=== PATIENT | female | born 1980 | race Caucasian/White ===

== ENCOUNTER 2016-12-31 07:54 | Day surgery (SDC) | payer OTHER ==
[~2016-12-31 07:54] MED LIST: Povidone-Iodine 10% Soln 118.25 ML Bottle ONE; Thrombin (Bovine) 5,000 Unit Kit ONE
[2016-12-31] MEDS ORDERED: Scopolamine 1.5 MG Transdermal Patch TRDERM SCH (08:00)
[2016-12-31] MEDS: Lactated Ringers 1,000 ML IV SCH ×2 (08:21→16:44)
[2016-12-31] MEDS ORDERED: Rocuronium 50 MG/5 ML Vial ONE (08:30)
[2016-12-31] MEDS ORDERED: Dexamethasone 4 MG/ML SDV ONE (08:30)
[2016-12-31] MEDS ORDERED: Propofol 200 MG/20 ML SDV ONE ×2 (08:30→10:19)
[2016-12-31] MEDS ORDERED: fentaNYL 250 MCG/5 ML SDV ONE ×2 (08:30→11:02)
[2016-12-31] MEDS ORDERED: Ondansetron 4 MG/2 ML SDV ONE (08:30)
[2016-12-31] MEDS ORDERED: Succinylcholine/Normal Saline 200 MG/10 ML Syringe ONE (08:30)
[2016-12-31] MEDS ORDERED: Ketamine 500 MG/5 ML MDV IV SCH (10:00)
[2016-12-31] MEDS ORDERED: ceFAZolin 2 GM in Sodium Chloride 0.9% 50 ML IV ONE (10:00)
[2016-12-31] MEDS ORDERED: Ropivacaine 49.25 ML, Ketorolac 30 MG, EPINEPHrine 0.5 MG, cloNIDine 80 MCG, Sodium Chl... INJECT ONE ×5 (10:00)
[2016-12-31] MEDS: Tranexamic Acid 1,000 MG in Sodium Chloride 0.9% 50 ML IV SCH ×2 (11:15→12:42)
[2016-12-31] MEDS ORDERED: Lactated Ringers 1,000 ML ONE (12:06)
[2016-12-31] MEDS ORDERED: Sennosides 8.6 MG Tab PO PRN (12:33)
[2016-12-31] MEDS ORDERED: Magnesium Hydroxide 400 MG/5 ML Susp 30 ML Cup PO PRN (12:33)
[2016-12-31] MEDS ORDERED: Aluminum Hydroxide/Magnesium Hydroxide/Simethicone Susp 30 ML Cup PO PRN (12:33)
[2016-12-31] MEDS ORDERED: Ondansetron 4 MG/2 ML SDV IVPUSH PRN (12:33)
[2016-12-31] MEDS ORDERED: Sodium Chloride 0.9% 10 ML Syringe FLUSH PRN (12:33)
[2016-12-31] MEDS ORDERED: Zolpidem 5 MG Tab PO PRN (12:33)
[2016-12-31] MEDS ORDERED: Naloxone 0.4 MG/ML SDV IVPUSH PRN (12:33)
[2016-12-31] MEDS ORDERED: hydrOXYzine HCl 50 MG/ML SDV IM ONE (12:41)
[2016-12-31] MEDS ORDERED: fentaNYL 100 MCG/2 ML SDV IVPUSH ONE (12:57)
[2016-12-31] MEDS: HYDROmorphone 1 MG/ML Syringe IVPUSH PRN ×3 (13:51→22:18)
[2016-12-31] MEDS: VERIFY SCOPOLAMINE PATCH TOP SCH (15:22)
[2016-12-31] MEDS: Acetaminophen/oxyCODONE 325-5 MG Tab PO PRN ×2 (16:54→21:12)
[2016-12-31] MEDS: ceFAZolin 2 GM in Sodium Chloride 0.9% 50 ML IV SCH (18:27)
[2017-01-01] MEDS: Acetaminophen/oxyCODONE 325-5 MG Tab PO PRN ×3 (01:23→12:02)
[2017-01-01] MEDS: ceFAZolin 2 GM in Sodium Chloride 0.9% 50 ML IV SCH ×3 (01:23→11:21)
[2017-01-01] MEDS: HYDROmorphone 1 MG/ML Syringe IVPUSH PRN (03:37)
[2017-01-01] MEDS: Tranexamic Acid 1,000 MG in Sodium Chloride 0.9% 50 ML IV SCH (07:17)
[2017-01-01] MEDS: VERIFY SCOPOLAMINE PATCH TOP SCH (09:41)
[2017-01-01] MEDS ORDERED: traMADol 50 MG Tab PO PRN (10:10)
--- NOTE | 2017-01-01 10:19 | OR ---
DATE OF PROCEDURE: 12/31/2016 PREOPERATIVE DIAGNOSIS: L3-L4 stenosis. POSTOPERATIVE DIAGNOSIS: L3-L4 stenosis. PROCEDURES: 1. L3-L4 laminectomy. 2. Extended time secondary to morbid obesity. 3. Use of operating microscope. PUMPING PLANT OPERATOR: Salome David NP. FLUID: Lactated Ringer solution. ESTIMATED BLOOD LOSS: 25 mL. COMPLICATIONS: None. SPECIMEN: None. DISCHARGE DISPOSITION: Stable to PACU. HISTORY AND INDICATIONS FOR THE PROCEDURE: The patient was seen in the clinic. She was referred from [place] for Pain Management, after having failed nonoperative treatment. Preoperative imaging confirmed the above-mentioned diagnosis. Risks and benefits of the procedure were explained to the patient. Informed consent was obtained. DETAILS OF PROCEDURE: The patient was seen preoperatively by myself and the Anesthesia staff in the preoperative holding area, where the operative site was marked. She was brought to the operative suite by the Anesthesia staff, where general anesthesia was administered. She was placed into a prone position on a Tobi table. All extremities were found to be well padded. The bed was flexed. We did confirm that we could get adequate imaging prior to starting the procedure. We then prepped and draped the patient in sterile manner. We draped the microscope and fluoroscopy unit sterilely. The patient was then prepped and draped in a sterile manner. Time-out was called identifying the correct patient, the correct procedure, the correct site, and antibiotics had been with appropriate period of time. Lateral fluoroscopy was used to identify the L3-L4 interspace. Incision was made over the L3 and L4 spinous processes and carried down to the deep fascia. Bleeding was controlled with a bipolar electrocautery unit as well as an Aquamantys 5.0. Cerebellars were used for retraction. We then used a Brewer over the spinous processes of L3 and L4, and then the lamina of L3, after the level of facets and then the superior portion of lamina of L4 out to the facet. We had a good placement on fluoroscopy. We then used rongeur to remove the inferior portion of the L3 spinous process and then used a 3-0 angled curette to undermine the lamina bilaterally at L3 on L4. I used a #5 Kerrison and removed part of the lamina of L3. I then used a long ball to free up the ligamentum flavum. There was quite a bit of epidural lipomatosis as well. I was able to remove the ligamentum flavum and then very carefully protecting the dura, opened up the lateral recesses using a #5 Kerrison opening it on the right side. I then used a long ball for retraction and then used bipolar cautery as well as Aquamantys 5.0 unit to clear the epidural space. I then used sharp #15 blade to go through the anulus and then removed a small amount of disk material using straight and upbiting pituitary as well as curette and Kerrison. Feeling that all the disk remaining was stable, I then controlled bleeding in the disk space with Floseal. We then copiously irrigated with 2 L of Betadine infused irrigation and then placed remainder of the Floseal and tamped the excess Floseal with a damp Ray-Nena. We then filled the remainder with Gel-Foam powder and then closed our fascia with #2 Vicryl interlocking suture as well as 0 interlocking suture and 0 continuous suture followed by deep subcutaneous closure with 0 Vicryl interrupted followed by superficial subcutaneous closure with 2-0 Vicryl followed by Monocryl followed by an Aquacel dressing. The patient was then flipped back into a supine position on her hospital bed and taken to the PACU in stable condition. Raffy Leone DO /[id number]
[2017-01-01 12:06] VITALS: BP 104/80
--- NOTE | 2017-01-05 11:01 | PCM.DCSUM1 ---
Discharge Summary - Hospital Course Free Text/Narrative:: Sofie is a pleasant 36-year-old female who is status post postop day 1 of a lumbar fusion. She is doing very well. She states that she still continues to have slight pain but otherwise is doing well. She is using oral pain medications. She has continued to work with physical therapy. - Discharge Data Discharge Date: 01/01/17 Discharge Disposition: Home, Self-Care 01 Condition: Good - Discharge Diagnosis/Problem(s) (1) Status post lumbar laminectomy SNOMED Code(s): 65667800626209875, [id number], [id number] ICD Code: Z98.890 - OTHER SPECIFIED POSTPROCEDURAL STATES Status: Acute Problem Details: L 3 - L 4 - Patient Summary/Data Consults: Consultations 12/31/16 12:33 OT Evaluation and Treatment [CONS] Routine Please Evaluate and Treat. OT Reason for Consult: Strengthening This query below is only for informational purposes and is not editable. PT Evaluation and Treatment [CONS] Routine Please Evaluate and Treat. PT Reason for Consult: Strengthening This query below is only for informational purposes and is not editable. - Patient Instructions Diet: Heart Healthy Diet Activity: Apply Ice, As Tolerated Driving: Do Not Drive Showering/Bathing: May Shower Wound/Incision Care: Keep Operative Site/Wound Site Clean and Dry, Change Dressing Daily - Discharge Plan Prescriptions/Med Rec: Acetaminophen/oxyCODONE [Percocet 325-5 MG] 1 tab PO Q4H PRN #90 tablet PRN Reason: Pain Home Medications: Home Meds Acetaminophen 650 tab PO Q4H PRN 12/09/16 [History] Cyclobenzaprine [Flexeril] 10 tab PO TID PRN 12/09/16 [History] Hydrocodone/Acetaminophen [[place] 5-325] 2 tab PO Q6H PRN 12/09/16 [History] Spironolactone 50 mg PO BID 12/09/16 [History] metFORMIN [Glucophage XR] 500 mg PO DAILY 12/09/16 [History] Levonorgestrel [Mirena] 1 each IY ASDIRECTED 12/26/16 [History] Acetaminophen/oxyCODONE [Percocet 325-5 MG] 1 tab PO Q4H PRN #90 tablet [Rx] Patient Handouts: Acetaminophen; Oxycodone tablets, Laminectomy, Care After - Discharge Summary/Plan Comment DC Time >30 min.: Yes Discharge Summary/Plan Comment: patient is requesting to go home today. I do believe that if the patient's pain is under control that we may proceed with discharge. Will keep her off all IV pain medications. We will send her home on Percocet and Valium. We will see her back in 1 month. We also start physical therapy in 1 month. She is to follow up with us sooner if she has any other issues. - General Info Functional Status: Reports: pain controlled, tolerating diet, ambulating, urinating - Review of Systems General: Reports: No Symptoms Skin: Reports: no symptoms - Patient Data Vitals - Most Recent: Last Vital Signs Temp 36.5 C 01/01/17 12:04 Pulse 65 01/01/17 12:04 Resp 18 01/01/17 12:04 BP 104/80 01/01/17 12:04 Pulse Ox 100 01/01/17 12:04 Weight - Most Recent: 292 lb 0.001 oz Med Orders - Current: Current Medications Discontinued Medications Al Hydroxide/Mg Hydroxide (Mag-Al Plus) 30 ml PO Q4H PRN PRN Reason: Indigestion Ropivacaine 49.25 ml/Ketorolac Tromethamine 30 mg/Epinephrine HCl 0.5 mg/ Clonidine HCl 80 mcg/ Sodium Chloride 48.45 ml 0 ml INJECT ONETIME ONE Stop: 12/31/16 10:01 Last Admin: 12/31/16 11:50 Dose: 100 ml Dexamethasone (Dexamethasone) Confirm Administered Dose 4 mg .ROUTE .STK-MED ONE Stop: 12/31/16 08:31 Diazepam (Valium) 5 mg IVPUSH Q6H PRN PRN Reason: Spasms Fentanyl (Sublimaze) Confirm Administered Dose 500 mcg .ROUTE .STK-MED ONE Stop: 12/31/16 08:31 Fentanyl (Sublimaze) Confirm Administered Dose 250 mcg .ROUTE .STK-MED ONE Stop: 12/31/16 11:03 Fentanyl (Sublimaze) 100 mcg IVPUSH ONETIME ONE Stop: 12/31/16 12:58 Last Admin: 12/31/16 13:01 Dose: 100 mcg Hydromorphone HCl (Dilaudid) 1 mg IVPUSH Q2H PRN PRN Reason: Pain Last Admin: 01/01/17 03:37 Dose: 1 mg Hydroxyzine HCl (Vistaril) 100 mg IM ONETIME ONE Stop: 12/31/16 12:42 Last Admin: 12/31/16 12:45 Dose: 100 mg Lactated Ringer's (Ringers, Lactated) 1,000 mls @ 0 mls/hr IV ASDIRECTED [facility] PRN Reason: KVO Last Admin: 12/31/16 16:44 Dose: 25 mls/hr Cefazolin Sodium 2 gm/ Sodium (Chloride) 50 mls @ 100 mls/hr IV ONETIME ONE Stop: 12/31/16 10:29 Last Admin: 12/31/16 10:34 Dose: 100 mls/hr Tranexamic Acid 1,000 mg/ (Sodium Chloride) 60 mls @ 240 mls/hr IV Q3H [facility] Stop: 12/31/16 13:14 Last Admin: 01/01/17 07:17 Dose: Not Given Ketamine HCl 100 mg/ Sodium (Chloride) 100 mls @ 19.2 mls/hr IV ASDIRECTED [facility] PRN Reason: 5 MCG/KG/MIN Stop: 12/31/16 15:00 Lactated Ringer's (Ringers, Lactated) Confirm Administered Dose 1,000 mls @ as directed .ROUTE .STK-MED ONE Stop: 12/31/16 12:07 Cefazolin Sodium 2 gm/ Sodium (Chloride) 50 mls @ 100 mls/hr IV Q8H [facility] Stop: 01/01/17 10:29 Last Admin: 01/01/17 11:21 Dose: Not Given Ketamine HCl (Ketalar) 32 mg IV ASDIRECTED [facility] Stop: 12/31/16 14:00 Magnesium Hydroxide (Milk Of Magnesia) 30 ml PO BID PRN PRN Reason: Constipation Naloxone HCl (Narcan) 0.2 mg IVPUSH ASDIRECTED PRN PRN Reason: Oversedation Stop: 12/31/16 16:00 Verify Scopolamine (Patch) 0 each TOP DAILY [facility] Last Admin: 01/01/17 09:41 Dose: Not Given Ondansetron HCl (Zofran) Confirm Administered Dose 4 mg .ROUTE .STK-MED ONE Stop: 12/31/16 08:31 Ondansetron HCl (Zofran) 8 mg IVPUSH Q4H PRN PRN Reason: Nausea/Vomiting Oxycodone/Acetaminophen (Percocet 325-5 Mg) 2 tab PO Q4H PRN PRN Reason: Pain Last Admin: 01/01/17 12:02 Dose: 2 tab Povidone Iodine (Betadine 10% Soln) Confirm Administered Dose 1 ml .ROUTE .STK- MED ONE Stop: 12/31/16 07:09 Last Admin: 12/31/16 11:22 Dose: 20 ml Propofol (Diprivan 20 Ml) Confirm Administered Dose 200 mg .ROUTE .STK-MED ONE Stop: 12/31/16 08:31 Propofol (Diprivan 20 Ml) Confirm Administered Dose 600 mg .ROUTE .STK-MED ONE Stop: 12/31/16 10:20 Rocuronium [place] (Zemuron) Confirm Administered Dose 50 mg .ROUTE .STK-MED ONE Stop: 12/31/16 08:31 Scopolamine (Transderm-Scop) 1.5 mg TRDERM Q72H [facility] Stop: 01/03/17 06:00 Last Admin: 12/31/16 08:20 Dose: 1.5 mg Senna (Senna) 8.6 mg PO BID PRN PRN Reason: Constipation Sodium Chloride (Saline Flush) 10 ml FLUSH ASDIRECTED PRN PRN Reason: Keep Vein Open Succinylcholine Chloride (Succinylcholine In Ns Pf) Confirm Administered Dose 200 mg .ROUTE .STK-MED ONE Stop: 12/31/16 08:31 Thrombin (Thrombin-Jmi) Confirm Administered Dose 15,000 unit .ROUTE .STK-MED ONE Stop: 12/31/16 07:09 Last Admin: 12/31/16 11:22 Dose: 10,000 unit Tramadol HCl (Ultram) 50 mg PO Q4H PRN PRN Reason: Pain Last Admin: 01/01/17 10:28 Dose: 50 mg Zolpidem Tartrate (Ambien) 5 mg PO BEDTIME PRN PRN Reason: Sleep Last Admin: 12/31/16 22:18 Dose: 5 mg - Exam General: Reports: alert, oriented Back Exam: Reports: Normal Inspection Extremities: Reports: no edema Skin: Reports: warm, dry, intact Wound/Incisions: Reports: healing well, dressing dry and intact, no drainage *Q Meaningful Use (DIS) - VTE *Q VTE Criteria *Q: - Stroke *Q Stroke Criteria *Q: - AMI *Q AMI Criteria *Q:
== END 2017-01-01 14:25 | disposition home or self-care (01) ==
LOC: JP.SDS 07:54 → JP.MS 12:33 → JP.SDS 01-01 14:25
PROVIDERS: ATTEND Orthopaedic Surgery
DX: M48.06 Spinal stenosis, lumbar region (principal); E66.01 Morbid (severe) obesity due to excess calories; Z68.41 Body mass index [BMI] 40.0-44.9, adult; Z98.890 Other specified postprocedural states; Z79.84 Long term (current) use of oral hypoglycemic drugs; Z79.899 Other long term (current) drug therapy; F17.210 Nicotine dependence, cigarettes, uncomplicated
CPT/HCPCS: 36415; 63047; 76001; 80048; 82962; 85025; 86850; 86900; 86901; 97161; 97165; 97535; A9270; J0690; J1100; J1170; J2405; J2704; J2795; J3010; J3410; J7030; J7050; J7120

== ENCOUNTER 2017-01-29 13:12 | Inpatient (IN) | payer OTHER ==
[2017-01-29] MEDS ORDERED: ceFAZolin 2 GM in Premix Bag 1 BAG IV SCH (14:00)
[2017-01-29] MEDS ORDERED: Ondansetron 4 MG Tab.DIS PO PRN (14:21)
[2017-01-29] MEDS ORDERED: Acetaminophen/HYDROcodone 325-5 MG Tab PO PRN (14:21)
[2017-01-29] MEDS ORDERED: Sodium Chloride 0.9% 10 ML Syringe FLUSH PRN (14:21)
[2017-01-29] MEDS: ceFAZolin 2 GM in Sodium Chloride 0.9% 50 ML IV SCH ×2 (16:15→21:39)
[2017-01-29] MEDS: Acetaminophen/HYDROcodone 325-5 MG Tab PO PRN ×2 (16:39→21:10)
[2017-01-29] MEDS ORDERED: Non-Formulary Medication 1 Each (Spironolactone [Spironolactone] 50 MG) PO SCH (21:00)
[2017-01-29] MEDS ORDERED: Spironolactone 25 MG Tab PO SCH (21:00)
[2017-01-29] MEDS ORDERED: Zolpidem 5 MG Tab PO SCH (21:00)
[2017-01-29] MEDS ORDERED: Sodium Chloride 0.9% 1,000 ML IV SCH (23:55)
[2017-01-30] MEDS: Acetaminophen/HYDROcodone 325-5 MG Tab PO PRN ×4 (03:31→20:24)
[2017-01-30] MEDS: ceFAZolin 2 GM in Sodium Chloride 0.9% 50 ML IV SCH ×3 (05:56→22:10)
[2017-01-30] MEDS ORDERED: Glycopyrrolate 0.2 MG/ML 5 ML MDV ONE (06:55)
[2017-01-30] MEDS ORDERED: Succinylcholine 200 MG/10 ML MDV ONE (06:55)
[2017-01-30] MEDS ORDERED: Propofol 200 MG/20 ML SDV ONE (06:55)
[2017-01-30] MEDS ORDERED: Dexamethasone 4 MG/ML SDV ONE (06:55)
[2017-01-30] MEDS ORDERED: Rocuronium 50 MG/5 ML Vial ONE (06:55)
[2017-01-30] MEDS ORDERED: Neostigmine Methylsulfate 1 MG/ML 5 ML Syringe ONE (06:55)
[2017-01-30] MEDS ORDERED: Thrombin (Bovine) 5,000 Unit Kit ONE (06:55)
[2017-01-30] MEDS ORDERED: Ondansetron 4 MG/2 ML SDV ONE (06:55)
[2017-01-30] MEDS ORDERED: Povidone-Iodine 10% Soln 118.25 ML Bottle ONE (06:55)
[2017-01-30] MEDS ORDERED: Gentamicin 40 MG/ML 2 ML Vial ONE (06:55)
--- NOTE | 2017-01-30 07:18 | PCM.HP ---
H&P History of Present Illness - General Admit Problem/Dx: Admission Diagnosis/Problem Admission Diagnosis/Problem Wound Source of Information: Patient History Limitations: Reports: No Limitations - History of Present Illness Onset of Symptoms: Reports: Gradual Duration of Symptoms: Reports: Waxing/Waning Location: Reports: Back Quality: Reports: Ache, Dull Severity: Mild Improves with: Reports: Rest Worsens with: Reports: Movement Associated Symptoms: Reports: No Other Symptoms Lower Back Pain Score (Numeric/FACES): 6 - Related Data Allergies/Adverse Reactions: Allergies Allergy/AdvReac Type Severity Reaction Status Date / Time No Known Allergies Allergy Verified 12/31/16 08:23 Home Medications: Home Meds Acetaminophen 650 tab PO Q4H PRN 12/09/16 [History] Hydrocodone/Acetaminophen [[place] 5-325] 2 tab PO Q6H PRN 12/09/16 [History] Levonorgestrel [Mirena] 1 each IY ASDIRECTED 12/26/16 [History] Acetaminophen/oxyCODONE [Percocet 325-5 MG] 1 tab PO Q4H PRN #90 tablet [Rx] Diazepam [Valium] 5 mg PO BEDTIME 01/29/17 [History] Spironolactone 50 mg PO DAILY 01/29/17 [History] Past Medical History HEENT History: Reports: Allergic Rhinitis, Impaired Vision Respiratory History: Reports: Bronchitis, Recurrent Gastrointestinal History: Reports: GERD, Hemorrhoids [employer] History: Reports: Musculoskeletal History: Reports: Back Pain, Chronic, Fracture Other Musculoskeletal History: wrist Endocrine/Metabolic History: Reports: Obesity/BMI 30+ - Infectious Disease History Infectious Disease History: Reports: MRSA - Past Surgical History HEENT Surgical History: Reports: Adenoidectomy, Tonsillectomy Other HEENT Surgeries/Procedures: wears glasses at night while driving Respiratory Surgical History: Reports: None GI Surgical History: Reports: Cholecystectomy Endocrine Surgical History: Reports: None Musculoskeletal Surgical History: Reports: Other (See Below) Other Musculoskeletal Surgeries/Procedures:: laminectomy Social & Family History - Family History Cardiac: Reports: [place] Other Cardiac Family History: grandmother Respiratory: Reports: None Musculoskeletal: Reports: Back pain, Chronic Other Musculoskeletal Family History: mother has had 6 back surgeries Psychiatric: Reports: Bipolar Other Psychiatric Family History: mother Endocrine/Metabolic: Reports: Hypothyroidism, Obesity/MBI 30+ Oncologic: Reports: Colon Other Oncologic Family History: grandfather - Tobacco Use Smoking Status *Q: Current Every Day Smoker Years of Tobacco use: 13 Packs/Tins Daily: 0.5 Tobacco Use Comment: does not feel she needs a nicotine patch Second Hand Smoke Exposure: No - Caffeine Use Caffeine Use: Reports: Coffee, Soda Other Caffeine Use: 1 cup of coffee and 1 pop per day - Alcohol Use Days Per Week of Alcohol Use: 0 - Recreational Drug Use Recreational Drug Use: Yes Drug Use in Last 12 Months: Yes Recreational Drug Type: Reports: Marijuana/Hashish Recreational Drug Use Frequency: Rarely H&P Review of Systems - Review of Systems: Review Of Systems: See Below General: Reports: No Symptoms HEENT: Reports: No Symptoms Pulmonary: Reports: No Symptoms Cardiovascular: Reports: No Symptoms Gastrointestinal: Reports: No Symptoms Genitourinary: Reports: No Symptoms Musculoskeletal: Reports: Back Pain Skin: Reports: No Symptoms Psychiatric: Reports: No Symptoms Neurological: Reports: No Symptoms Hematologic/Lymphatic: Reports: No Symptoms Immunologic: Reports: No Symptoms Exam - Exam Exam: See Below - Vital Signs Vital Signs: Last Vital Signs Temp 98.1 F 01/30/17 06:47 Pulse 86 01/30/17 06:47 Resp 16 01/30/17 06:47 BP 126/72 01/30/17 06:47 Pulse Ox 96 01/30/17 06:47 Weight: 287 lb - Exam General: Alert, Oriented, 4 HEENT: PERRLA, Conjunctiva Clear, EACs Clear, EOMI, Hearing Intact, Mucosa Moist & [place], Nares Patent Neck: Supple, Trachea Midline, 2 Lungs: Clear to Auscultation, Normal Respiratory Effort Cardiovascular: Regular Rate, Regular Rhythm Back Exam: CVA Tenderness (L) Extremities: Normal Inspection, Normal Range of Motion, Non-Tender, No Pedal Edema, Normal Capillary Refill Skin: Wound Neurological: Cranial Nerves Intact, Reflexes Equal Bilateral Neuro Extensive - Mental Status: Alert, Oriented x3, Normal Mood/Affect, Normal Cognition Neuro Extensive - Motor, Sensory, Reflexes: CN II-XII Intact, Normal Gait, Normal Reflexes Psychiatric: Alert, Normal Affect, Normal Mood - Patient Data Lab Results Last 24 hrs: Laboratory Results - last 24 hr 01/29/17 01/29/17 01/29/17 Range/Units 18:07 18:07 18:07 WBC 12.5 H (4.5-11.0) K/uL RBC 4.61 (3.30-5.50) M/uL Hgb 14.2 (12.0-15.0) g/dL Hct 42.5 (36.0-48.0) % MCV 92 (80-98) fL MCH 31 (27-31) pg MCHC 33 (32-36) % Plt Count 333 (150-400) K/uL Neut % (Auto) 57 (36-66) % Lymph % (Auto) 33 (24-44) % [place] % (Auto) 5 (2-6) % Eos % (Auto) 3 (2-4) % Baso % (Auto) 1 (0-1) % Sodium 137 L (140-148) mmol/L Potassium 3.7 (3.6-5.2) mmol/L Chloride 104 (100-108) mmol/L Carbon Dioxide 22 (21-32) mmol/L Anion Gap 14.7 H (5.0-14.0) mmol/L BUN 12 (7-18) mg/dL Creatinine 1.0 (0.6-1.0) mg/dL Est Cr Clr Drug Dosing 79.96 mL/min Estimated GFR (MDRD) > 60 (>60) Glucose 156 H (74-106) mg/dL Calcium 8.9 (8.5-10.1) mg/dL Total Bilirubin 0.3 (0.2-1.0) mg/dL AST 20 (15-37) U/L ALT 29 (12-78) U/L Alkaline Phosphatase 61 (46-116) U/L Total Protein 7.5 (6.4-8.2) g/dL Albumin 3.7 (3.4-5.0) g/dL Globulin 3.8 H (2.3-3.5) g/dL Albumin/Globulin Ratio 1.0 L (1.2-2.2) Blood Type A POSITIVE Gel Antibody Screen Negative 01/30/17 01/30/17 Range/Units 05:52 05:52 WBC 9.5 (4.5-11.0) K/uL RBC 4.33 (3.30-5.50) M/uL Hgb 13.6 (12.0-15.0) g/dL Hct 40.6 (36.0-48.0) % MCV 94 (80-98) fL MCH 31 (27-31) pg MCHC 34 (32-36) % Plt Count 288 (150-400) K/uL Neut % (Auto) 56 (36-66) % Lymph % (Auto) 31 (24-44) % [place] % (Auto) 8 H (2-6) % Eos % (Auto) 4 (2-4) % Baso % (Auto) 1 (0-1) % Sodium 140 (140-148) mmol/L Potassium 4.0 (3.6-5.2) mmol/L Chloride 106 (100-108) mmol/L Carbon Dioxide 27 (21-32) mmol/L Anion Gap 6.9 (5.0-14.0) mmol/L BUN 11 (7-18) mg/dL Creatinine 0.9 (0.6-1.0) mg/dL Est Cr Clr Drug Dosing 88.85 mL/min Estimated GFR (MDRD) > 60 (>60) Glucose 123 H (74-106) mg/dL Calcium 8.5 (8.5-10.1) mg/dL Total Bilirubin 0.4 (0.2-1.0) mg/dL AST 15 (15-37) U/L ALT 24 (12-78) U/L Alkaline Phosphatase 53 (46-116) U/L Total Protein 6.5 (6.4-8.2) g/dL Albumin 3.1 L (3.4-5.0) g/dL Globulin 3.4 (2.3-3.5) g/dL Albumin/Globulin Ratio 0.9 L (1.2-2.2) Blood Type Gel Antibody Screen Result Diagrams: 01/30/17 05:52 01/30/17 05:52 *Q Meaningful Use (ADM) - VTE *Q VTE Criteria *Q: - Stroke *Q Stroke Criteria *Q: - AMI *Q AMI Criteria *Q: - Problem List (1) Status post lumbar laminectomy SNOMED Code(s): 12920278521133730, [id number], [id number] ICD Code: Z98.890 - OTHER SPECIFIED POSTPROCEDURAL STATES Status: Acute Current Visit: No Problem Details: L 3 - L 4 (2) Low back pain SNOMED Code(s): 514501218 ICD Code: M54.5 - LOW BACK PAIN Status: Chronic Current Visit: No Qualifiers: Chronicity: chronic Back pain laterality: midline Sciatica presence: without sciatica Qualified Code(s): M54.5 - Low back pain; G89.29 - Other chronic pain Problem List Initiated/Reviewed/Updated: Yes Orders Last 24hrs: Active Orders 24 hr Category Date Time Status Patient Status [ADT] Routine ADT 01/29/17 14:21 Active Ambulate [RC] QID Care 01/29/17 14:21 Active Communication Order [RC] ROUTINE Care 01/29/17 20:18 Active Intake and Output [RC] QSHIFT Care 01/29/17 14:22 Active Oxygen Therapy [RC] PRN Care 01/29/17 14:21 Active Peripheral IV Care [RC] Q12H Care 01/29/17 14:23 Active Up to Chair [RC] QID Care 01/29/17 14:21 Active VTE/DVT Education [RC] Per Unit Routine Care 01/29/17 14:21 Active Vital Signs [RC] Q4H Care 01/29/17 14:21 Active NPO After Midnight [Nothing per Oral After Midnight Diet 01/29/17 Dinner Active Diet] [DIET] Regular Diet [DIET] Diet 01/29/17 Dinner Active Acetaminophen/HYDROcodone [Gordon 325-5 MG] Med 01/29/17 14:26 Active 1 tab PO Q4H PRN Ondansetron [Zofran ODT] Med 01/29/17 14:21 Active 4 mg PO Q6H PRN Pneumococcal Polyvalent-23 Vac [Pneumovax 23] Med 01/30/17 13:00 Once 0.5 ml IM .ONCE ONE Sodium Chloride 0.9% [Normal Saline] 1,000 ml Med 01/29/17 23:55 Active IV ASDIRECTED Sodium Chloride 0.9% [Saline Flush] Med 01/29/17 14:21 Active 10 ml FLUSH ASDIRECTED PRN Zolpidem [Ambien] Med 01/29/17 21:00 Active 5 mg PO BEDTIME ceFAZolin [Ancef] 2 gm Med 01/29/17 14:00 Active Sodium Chloride 0.9% [Normal Saline] 50 ml IV Q8H Convert IV to Saline Lock [OM.PC] Routine Oth 01/29/17 20:18 Ordered Peripheral IV Insertion Adult [OM.PC] Routine Oth 01/29/17 14:21 Ordered Saline Lock Insert [OM.PC] Routine Oth 01/29/17 14:21 Ordered Sequential Compression Device [OM.PC] Per Unit Routine Oth 01/29/17 14:22 Ordered Resuscitation Status Routine Resus Stat 01/29/17 14:21 Ordered Medication Orders Hydrocodone Bitart/Acetaminophen (Gordon 325-5 Mg) 1 tab PO Q4H PRN PRN Reason: Pain Last Admin: 01/30/17 03:31 Dose: 1 tab Admin: 01/29/17 21:10 Dose: 1 tab Admin: 01/29/17 16:39 Dose: 1 tab Cefazolin Sodium 2 gm/ Sodium (Chloride) 50 mls @ 100 mls/hr IV Q8H [facility] Last Admin: 01/30/17 05:56 Dose: 100 mls/hr Infusion: 01/29/17 22:09 Dose: 100 mls/hr Admin: 01/29/17 21:39 Dose: 100 mls/hr Infusion: 01/29/17 16:45 Dose: 100 mls/hr Admin: 01/29/17 16:15 Dose: 100 mls/hr Sodium Chloride (Normal Saline) 1,000 mls @ 25 mls/hr IV ASDIRECTED [facility] Ondansetron HCl (Zofran Odt) 4 mg PO Q6H PRN PRN Reason: Nausea able to take PO Pneumococcal Polyvalent Vaccine (Pneumovax 23) 0.5 ml IM .ONCE ONE Stop: 01/30/17 13:01 Sodium Chloride (Saline Flush) 10 ml FLUSH ASDIRECTED PRN PRN Reason: Keep Vein Open Zolpidem Tartrate (Ambien) 5 mg PO BEDTIME [facility] Last Admin: 01/29/17 21:39 Dose: 5 mg Assessment/Plan Comment:: Pt had MRI ordered by Michelle Sullivan who was treating for superficial wound dihissence. Showed deep tracking into L3-4 laminectomy site. Advised I and D with wound vac. PICC placed yesterday and started empirically on ancef. Will take to surgery today. Risks and benefits discussed. Consent obtained.
[2017-01-30] MEDS ORDERED: Vancomycin 1 GM SDV ONE (07:33)
[2017-01-30] MEDS ORDERED: Ropivacaine 49.25 ML, Ketorolac 30 MG, EPINEPHrine 0.5 MG, cloNIDine 80 MCG, Sodium Chl... INJECT ONE ×5 (08:00)
[2017-01-30] MEDS ORDERED: metFORMIN 500 MG Tab.ER PO SCH (09:00)
[2017-01-30] MEDS ORDERED: Ondansetron 4 MG/2 ML SDV IVPUSH PRN (09:06)
[2017-01-30] MEDS ORDERED: Naloxone 0.4 MG/ML SDV IVPUSH PRN (09:06)
[2017-01-30] MEDS ORDERED: Magnesium Hydroxide 400 MG/5 ML Susp 30 ML Cup PO PRN (09:06)
[2017-01-30] MEDS ORDERED: Aluminum Hydroxide/Magnesium Hydroxide/Simethicone Susp 30 ML Cup PO PRN (09:06)
[2017-01-30] MEDS ORDERED: Sennosides 8.6 MG Tab PO PRN (09:06)
[2017-01-30] MEDS: HYDROmorphone 1 MG/ML Syringe IVPUSH PRN (10:04)
[2017-01-30] MEDS ORDERED: Pneumococcal Polyvalent-23 Vaccine 0.5 ML SDV IM ONE (13:00)
[2017-01-30] MEDS: Zolpidem 5 MG Tab PO PRN (22:08)
[2017-01-31] MEDS: Acetaminophen/HYDROcodone 325-5 MG Tab PO PRN ×5 (00:11→19:47)
[2017-01-31] MEDS: ceFAZolin 2 GM in Sodium Chloride 0.9% 50 ML IV SCH ×3 (05:24→21:53)
[2017-01-31] MEDS: HYDROmorphone 1 MG/ML Syringe IVPUSH PRN ×2 (06:50→21:54)
--- NOTE | 2017-01-31 09:51 | PCM.PN ---
- General Info Functional Status: Reports: Pain Controlled - Review of Systems General: Reports: No Symptoms HEENT: Reports: No Symptoms Pulmonary: Reports: No Symptoms Cardiovascular: Reports: No Symptoms Gastrointestinal: Reports: No Symptoms Genitourinary: Reports: No Symptoms Musculoskeletal: Reports: Back Pain Skin: Reports: Other Neurological: Reports: No Symptoms Psychiatric: Reports: No Symptoms - Patient Data Vitals - Most Recent: Last Vital Signs Temp 97.0 F 01/31/17 06:55 Pulse 86 01/31/17 06:55 Resp 18 01/31/17 06:55 BP 129/71 01/31/17 06:55 Pulse Ox 98 01/31/17 07:20 Weight - Most Recent: 286 lb 15.999 oz I&O - Last 24 Hours: Intake & Output 01/30/17 01/31/17 01/31/17 22:59 06:59 14:59 Intake Total 800 708 Output Total 60 Balance 800 648 Joel Results Last 24 Hours: Microbiology 01/30/17 08:12 Gram Stain - Final Back - Middle Wound Culture - Preliminary NO GROWTH AFTER 1 DAY Anaerobic Culture - Preliminary NO GROWTH AFTER 1 DAY 01/30/17 08:05 Gram Stain - Final Back - Middle Wound Culture - Preliminary NO GROWTH AFTER 1 DAY Anaerobic Culture - Preliminary NO GROWTH AFTER 1 DAY Med Orders - Current: Current Medications Hydrocodone Bitart/Acetaminophen ([place] 325-5 Mg) 1 tab PO Q4H PRN PRN Reason: Pain Last Admin: 01/31/17 09:10 Dose: 1 tab Al Hydroxide/Mg Hydroxide (Mag-Al Plus) 30 ml PO Q4H PRN PRN Reason: Indigestion Diazepam (Valium) 5 mg IVPUSH Q6H PRN PRN Reason: Spasms Last Admin: 01/31/17 02:29 Dose: 5 mg Hydromorphone HCl (Dilaudid) 1 mg IVPUSH Q2H PRN PRN Reason: Pain Last Admin: 01/31/17 06:50 Dose: 1 mg Sodium Chloride (Normal Saline) 1,000 mls @ 25 mls/hr IV ASDIRECTED MATTHEW Magnesium Hydroxide (Milk Of Magnesia) 30 ml PO BID PRN PRN Reason: Constipation Ondansetron HCl (Zofran) 8 mg IVPUSH Q4H PRN PRN Reason: Nausea/Vomiting Pneumococcal Polyvalent Vaccine (Pneumovax 23) 0.5 ml IM .ONCE ONE Stop: 01/31/17 13:01 Senna (Senna) 8.6 mg PO BID PRN PRN Reason: Constipation Sodium Chloride (Saline Flush) 10 ml FLUSH ASDIRECTED PRN PRN Reason: Keep Vein Open Zolpidem Tartrate (Ambien) 5 mg PO BEDTIME PRN PRN Reason: Sleep Last Admin: 01/30/17 22:08 Dose: 5 mg Discontinued Medications Hydrocodone Bitart/Acetaminophen ([place] 325-5 Mg) 1 tab PO Q4H PRN PRN Reason: Pain (moderate 4-6) Ropivacaine 49.25 ml/Ketorolac Tromethamine 30 mg/Epinephrine HCl 0.5 mg/ Clonidine HCl 80 mcg/ Sodium Chloride 48.45 ml 0 ml INJECT ONETIME ONE Stop: 01/30/17 08:01 Last Admin: 01/30/17 07:57 Dose: 100 ml Dexamethasone (Dexamethasone) Confirm Administered Dose 4 mg .ROUTE .STK-MED ONE Stop: 01/30/17 06:56 Fentanyl Citrate (Fentanyl 0.05 Mg/Ml Vial) Confirm Administered Dose 50 mcg .ROUTE .STK-MED ONE Stop: 01/30/17 06:56 Gentamicin Sulfate (Gentamicin) Confirm Administered Dose 720 mg .ROUTE .STK- MED ONE Stop: 01/30/17 06:56 Last Admin: 01/30/17 08:34 Dose: 480 mg Glycopyrrolate (Robinul) Confirm Administered Dose 1 mg .ROUTE .STK-MED ONE Stop: 01/30/17 06:56 Cefazolin Sodium 2 gm/ Sodium (Chloride) 50 mls @ 100 mls/hr IV Q8H MATTHEW Last Admin: 01/30/17 05:56 Dose: 100 mls/hr Cefazolin Sodium 2 gm/ Sodium (Chloride) 50 mls @ 100 mls/hr IV Q8H MATTHEW Stop: 01/31/17 06:29 Last Admin: 01/31/17 05:24 Dose: 100 mls/hr Metformin HCl (Glucophage Xr) 500 mg PO DAILY [facility] Naloxone HCl (Narcan) 0.2 mg IVPUSH ASDIRECTED PRN PRN Reason: Oversedation Stop: 01/30/17 23:00 Neostigmine Methylsulfate (Neostigmine) Confirm Administered Dose 5 mg .ROUTE .STK-MED ONE Stop: 01/30/17 06:56 Ondansetron HCl (Zofran Odt) 4 mg PO Q6H PRN PRN Reason: Nausea able to take PO Ondansetron HCl (Zofran) Confirm Administered Dose 4 mg .ROUTE .STK-MED ONE Stop: 01/30/17 06:56 Pneumococcal Polyvalent Vaccine (Pneumovax 23) 0.5 ml IM .ONCE ONE Stop: 01/30/17 13:01 Last Admin: 01/31/17 08:10 Dose: 0.5 ml Povidone Iodine (Betadine 10% Soln) Confirm Administered Dose 1 ml .ROUTE .STK- MED ONE Stop: 01/30/17 06:56 Last Admin: 01/30/17 08:03 Dose: 30 ml Propofol (Diprivan 20 Ml) Confirm Administered Dose 200 mg .ROUTE .STK-MED ONE Stop: 01/30/17 06:56 Rocuronium [place] (Zemuron) Confirm Administered Dose 50 mg .ROUTE .STK-MED ONE Stop: 01/30/17 06:56 Spironolactone (Aldactone) 50 mg PO BID MATTHEW Succinylcholine Chloride (Quelicin) Confirm Administered Dose 200 mg .ROUTE .STK -MED ONE Stop: 01/30/17 06:56 Thrombin (Thrombin-Jmi) Confirm Administered Dose 15,000 unit .ROUTE .STK-MED ONE Stop: 01/30/17 06:56 Vancomycin HCl (Vancomycin) Confirm Administered Dose 1 gm .ROUTE .STK-MED ONE Stop: 01/30/17 07:34 Last Admin: 01/30/17 08:02 Dose: 1 gm Zolpidem Tartrate (Ambien) 5 mg PO BEDTIME MATTHEW Last Admin: 01/29/17 21:39 Dose: 5 mg - Exam General: Alert, Oriented HEENT: Pupils Equal, Pupils Reactive, EOMI, Mucous Membr. Moist/[place] Neck: Supple Back Exam: Other Extremities: Normal Inspection, Normal Range of Motion, Non-Tender, No Pedal Edema, Normal Capillary Refill Skin: Other Wound/Incisions: Drainage Physical Findings Comments:: Minimal drain output no growth on cultures no organisms found on gram stain appropriate back pain no neurological changes - Problem List & Annotations (1) Status post lumbar laminectomy SNOMED Code(s): 38243615248052835, 933219344, 71681217944312379 Code(s): Z98.890 - OTHER SPECIFIED POSTPROCEDURAL STATES Status: Acute Current Visit: No Annotation/Comment:: L 3 - L 4 (2) Low back pain SNOMED Code(s): 616984272 Code(s): M54.5 - LOW BACK PAIN Status: Chronic Current Visit: No Qualifiers: Chronicity: chronic Back pain laterality: midline Sciatica presence: without sciatica Qualified Code(s): M54.5 - Low back pain; G89.29 - Other chronic pain - Problem List Review Problem List Initiated/Reviewed/Updated: Yes - My Orders Last 24 Hours: My Active Orders 01/31/17 13:00 Pneumococcal Polyvalent-23 Vac [Pneumovax 23] 0.5 ml IM .ONCE ONE - Plan Plan:: Await final cultures pain control wound vac management discuss plan with Dr. Sullivan primary vs wound vac closure
[2017-01-31] MEDS ORDERED: ceFAZolin 2 GM in Premix Bag 1 BAG IV SCH (10:00)
--- NOTE | 2017-01-31 11:05 | OR ---
DATE OF PROCEDURE: 01/30/2017 PREOPERATIVE DIAGNOSIS: Superficial infection, lumbar wound POSTOPERATIVE DIAGNOSIS: Superficial infection, lumbar wound. PROCEDURE: Irrigation and debridement of lumbar laminectomy wound, exploration of deep tissues through subcutaneous fat, fascia, muscle and down to bone over the dura and deep cultures taken. SOFTWARE ENGINEER KERNEL: DONATO Simpson. FLUID: Lactated Ringer solution. ESTIMATED BLOOD LOSS: 150 mL. COMPLICATIONS: None. SPECIMEN: Aerobic and anaerobic cultures. DISCHARGE DISPOSITION: Stable to PACU. INDICATION FOR THE PROCEDURE: The patient had a surgery performed on December 31 for lumbar laminectomy at L3-4. She did well postoperatively. She did have a superficial infection. This is being treated by Dr. Sullivan. Late last week he recommended that an MRI be obtained. The MRI did show a fluid collection with tracking down to the epidural space. The risks and benefits of the procedure were explained to the patient and informed consent was obtained. DETAILS OF PROCEDURE: The patient was seen preoperatively in her hospital bed. Operative site was marked. She was brought to the operative suite by Anesthesia and taken to the operating room by Anesthesia. General anesthesia was administered. The patient was then placed into a prone position on a Tobi table. All extremities found to be well padded. I did prescrubbed the area and removed part of the granulation tissue superficially. We then prepped and draped the back. A time-out was called identifying the correct patient, correct procedure, the correct site, and antibiotics had been in with appropriate period of time. I removed skin edges and subcutaneous fat down to the level of fascia and then exposed the fascia, removed those sutures that were deep in the fascia. At no time I did encounter what I believed to be an abscess on the only site of infection which would be a very superficial. After going through the deep fascia and removing some of the clot from the hematoma, we then inserted VersaTrack blades and I took a piece of tissue very deep next to the dura and cultured that with aerobic and anaerobic cultures. We then copiously irrigated with 3 L of gentamicin-infused irrigation. I then placed iodine on the superficial wound and skin so we did not track anything deep. We then closed the deep fascia with #2 Vicryl in a running manner. I then irrigated again with 3 L of gentamicin- infused irrigation and then closed the deep subcutaneous tissues with 0 Vicryl suture and then we had an area left that was 20 mm x 50 mm x 20 mm which we placed a wound VAC in. The wound VAC was then placed and found to have good suction. The patient was then flipped into her hospital bed in a supine position, allowed to awaken from general anesthesia and taken to the PACU in stable condition. Note. We also took cultures deeply after irrigating from around the tissue. Raffy Leone DO /[id number]
[2017-01-31] MEDS ORDERED: Pneumococcal Polyvalent-23 Vaccine 0.5 ML SDV IM ONE (13:00)
[2017-01-31] MEDS: Zolpidem 5 MG Tab PO PRN (21:53)
[2017-02-01] MEDS: HYDROmorphone 1 MG/ML Syringe IVPUSH PRN ×5 (00:55→22:18)
[2017-02-01] MEDS: ceFAZolin 2 GM in Sodium Chloride 0.9% 50 ML IV SCH ×3 (05:33→22:25)
[2017-02-01] MEDS ORDERED: Vancomycin 1 GM SDV ONE (06:05)
[2017-02-01] MEDS ORDERED: Povidone-Iodine 10% Soln 118.25 ML Bottle ONE (06:05)
[2017-02-01] MEDS: Acetaminophen/HYDROcodone 325-5 MG Tab PO PRN ×3 (08:35→19:58)
[2017-02-01] MEDS ORDERED: Ondansetron 4 MG/2 ML SDV ONE (12:44)
[2017-02-01] MEDS ORDERED: fentaNYL 100 MCG/2 ML SDV ONE (12:44)
[2017-02-01] MEDS ORDERED: Lidocaine 1% 2 ML ONE (12:44)
[2017-02-01] MEDS ORDERED: Propofol 200 MG/20 ML SDV ONE ×2 (12:44→13:56)
[2017-02-01] MEDS ORDERED: Midazolam 1 MG/ML 2 ML SDV ONE (12:44)
[2017-02-01] MEDS ORDERED: Ketamine 500 MG/5 ML MDV ONE (12:44)
[2017-02-01] MEDS ORDERED: Bupivacaine 0.5%/EPINEPHrine 1:200,000 50 ML MDV ONE (13:42)
--- NOTE | 2017-02-01 18:59 | OR ---
DATE OF PROCEDURE: 02/01/2017 PREOPERATIVE DIAGNOSIS: Superficial wound infection status post lumbar laminectomy, L3-L4. POSTOPERATIVE DIAGNOSIS: Superficial wound infection status post lumbar laminectomy, L3-L4. PROCEDURE: Removal of wound VAC and primary closure on posterior lumbar wound, L3-L4. HEAD OF INSIGHT: DONATO Coronel. ANESTHESIA: MAC local. FLUIDS: Lactated Ringer's solution. ESTIMATED BLOOD LOSS: 10 mL. COMPLICATIONS: None. SPECIMEN: None. DISCHARGE DISPOSITION: Stable to PACU. INDICATIONS FOR THE PROCEDURE: The patient had a wound VAC placement on Thursday after irrigation and debridement of soft tissues. Fortunately, no organisms were seen and nothing grew on cultures. I did not see anything that looked particularly purulent or worrisome during that procedure. The wound VAC was placed. We had a PICC line inserted. We were placing her on Ancef, we then took advise that we will take her back today for primary closure with possible incisional wound VAC placement. DETAILS OF PROCEDURE: The patient was seen preoperatively by myself and the Anesthesia staff on the floor. She was brought to the operative suite by the anesthesia staff where MAC local sedation was administered in prone position. All extremities found to be well padded. The patient was then prepped and draped in a sterile manner. A time-out was called identifying the correct patient, correct procedure, the correct site, and antibiotics had begun with an appropriate period of time. We had already taken off the wound VAC and preliminary scrubbed it back. Prior to the prepping, I then injected 20 mL of bupivacaine with epinephrine for local anesthesia. We then closed the wound with #2 Prolene and 2-0 nylon and then placed Betadine-soaked Adaptic over the wound, followed by sponges and Medipore tape. The patient was allowed to awaken and then transferred to her hospital bed in supine position and then transferred to the PACU in stable condition. Raffy Leone DO /[id number]
[2017-02-01] MEDS: Zolpidem 5 MG Tab PO PRN (22:18)
[2017-02-02] MEDS: Acetaminophen/HYDROcodone 325-5 MG Tab PO PRN ×2 (00:37→05:54)
[2017-02-02] MEDS: HYDROmorphone 1 MG/ML Syringe IVPUSH PRN ×2 (02:12→08:00)
[2017-02-02] MEDS: ceFAZolin 2 GM in Sodium Chloride 0.9% 50 ML IV SCH (05:46)
[2017-02-02 08:07] VITALS: BP 118/70
--- NOTE | 2017-02-05 08:43 | PCM.DCSUM1 ---
Discharge Summary - Discharge Data Discharge Date: 02/02/17 Discharge Disposition: Home, Self-Care 01 Condition: Good - Patient Summary/Data Consults: Consultations 01/30/17 09:07 OT Evaluation and Treatment [CONS] Routine Please Evaluate and Treat. OT Reason for Consult: Strengthening This query below is only for informational purposes and is not editable. Admission Diagnosis/Problem: Wound PT Evaluation and Treatment [CONS] Routine Please Evaluate and Treat. PT Reason for Consult: Strengthening This query below is only for informational purposes and is not editable. Admission Diagnosis/Problem: Wound 01/30/17 09:09 Consult to Physician [CONS] Routine Consulting Provider: Jose Sullivan Call Completed to Consulting Physician: No - Patient Instructions Diet: Usual Diet as Tolerated Activity: Apply Ice, As Tolerated, Full Weight Bearing, No Lifting Over 10 Pounds Driving: Do Not Drive Showering/Bathing: May Shower Wound/Incision Care: Keep Operative Site/Wound Site Clean and Dry, Change Dressing Daily Notify Provider of: Fever, Increased Pain, Swelling and Redness, Drainage, Nausea and/or Vomiting - Discharge Plan Prescriptions/Med Rec: Zolpidem [Ambien] 5 mg PO BEDTIME PRN #20 tablet PRN Reason: Insomnia Home Medications: Home Meds Acetaminophen 650 tab PO Q4H PRN 12/09/16 [History] Hydrocodone/Acetaminophen [[place] 5-325] 2 tab PO Q6H PRN 12/09/16 [History] Levonorgestrel [Mirena] 1 each IY ASDIRECTED 12/26/16 [History] Acetaminophen/oxyCODONE [Percocet 325-5 MG] 1 tab PO Q4H PRN #90 tablet [Rx] Diazepam [Valium] 5 mg PO BEDTIME 01/29/17 [History] Spironolactone 50 mg PO DAILY 01/29/17 [History] Zolpidem [Ambien] 5 mg PO BEDTIME PRN #20 tablet 02/02/17 [Rx] Patient Handouts: Incision and Drainage, Care After, How to Change Your Dressing, [id number] Referrals: Raffy Leone DO [Physician] - 02/16/17 9:15 am () - Discharge Summary/Plan Comment DC Time >30 min.: Yes Discharge Summary/Plan Comment: Sofie is a pleasant 36-year-old female who is status postop day 3 of a repair of her lumbar fusion. Patient had I&D of the wound area done on 01/30. She is doing very well. Patient continues to have sutures present. She denies any excess drainage or pain at that area at this time. Assessment: Dressing is clean dry intact over that area. No significant or signs of infection noted at this time. Patient has equal strength in lower extremities. No pain upon palpation at this time. Plan: At this time we'll discharge her to home. She will see us back in 2 weeks to have the sutures removed. She needs to keep that area clean dry and intact. She will notify us if she has any other issues. I did give the patient 10 Ambien to help rest and she continues to have a [place] prescription from her prior surgery. - Patient Data Vitals - Most Recent: Last Vital Signs Temp 36.4 C 02/02/17 06:00 Pulse 93 02/02/17 06:00 Resp 18 02/02/17 06:00 BP 118/70 02/02/17 06:00 Pulse Ox 99 02/02/17 06:00 Weight - Most Recent: 286 lb 15.999 oz Med Orders - Current: Current Medications Discontinued Medications Hydrocodone Bitart/Acetaminophen ([place] 325-5 Mg) 1 tab PO Q4H PRN PRN Reason: Pain (moderate 4-6) Hydrocodone Bitart/Acetaminophen ([place] 325-5 Mg) 1 tab PO Q4H PRN PRN Reason: Pain Last Admin: 02/02/17 05:54 Dose: 1 tab Al Hydroxide/Mg Hydroxide (Mag-Al Plus) 30 ml PO Q4H PRN PRN Reason: Indigestion Bupivacaine HCl/Epinephrine Bitart ([place] 0.5%/Epinephrine 1:200,000) Confirm Administered Dose 50 ml .ROUTE .STK-MED ONE Stop: 02/01/17 13:43 Last Admin: 02/01/17 15:29 Dose: 20 ml Ropivacaine 49.25 ml/Ketorolac Tromethamine 30 mg/Epinephrine HCl 0.5 mg/ Clonidine HCl 80 mcg/ Sodium Chloride 48.45 ml 0 ml INJECT ONETIME ONE Stop: 01/30/17 08:01 Last Admin: 01/30/17 07:57 Dose: 100 ml Dexamethasone (Dexamethasone) Confirm Administered Dose 4 mg .ROUTE .STK-MED ONE Stop: 01/30/17 06:56 Diazepam (Valium) 5 mg IVPUSH Q6H PRN PRN Reason: Spasms Last Admin: 01/31/17 11:36 Dose: 5 mg Fentanyl (Sublimaze) Confirm Administered Dose 100 mcg .ROUTE .STK-MED ONE Stop: 02/01/17 12:45 Fentanyl Citrate (Fentanyl 0.05 Mg/Ml Vial) Confirm Administered Dose 50 mcg .ROUTE .STK-MED ONE Stop: 01/30/17 06:56 Gentamicin Sulfate (Gentamicin) Confirm Administered Dose 720 mg .ROUTE .STK- MED ONE Stop: 01/30/17 06:56 Last Admin: 01/30/17 08:34 Dose: 480 mg Glycopyrrolate (Robinul) Confirm Administered Dose 1 mg .ROUTE .STK-MED ONE Stop: 01/30/17 06:56 Heparin Sodium (Porcine) (Heparin Lock Flush 100 Units/Ml) 500 units FLUSH ASDIRECTED PRN PRN Reason: IV Use Hydromorphone HCl (Dilaudid) 1 mg IVPUSH Q2H PRN PRN Reason: Pain Last Admin: 02/02/17 08:00 Dose: 1 mg Cefazolin Sodium 2 gm/ Sodium (Chloride) 50 mls @ 100 mls/hr IV Q8H [facility] Last Admin: 01/30/17 05:56 Dose: 100 mls/hr Sodium Chloride (Normal Saline) 1,000 mls @ 25 mls/hr IV ASDIRECTED [facility] Last Admin: 02/01/17 05:02 Dose: 25 mls/hr Cefazolin Sodium 2 gm/ Sodium (Chloride) 50 mls @ 100 mls/hr IV Q8H [facility] Stop: 01/31/17 06:29 Last Admin: 01/31/17 05:24 Dose: 100 mls/hr Cefazolin Sodium 2 gm/ Sodium (Chloride) 50 mls @ 100 mls/hr IV Q8H [facility] Last Admin: 02/02/17 05:46 Dose: 100 mls/hr Lidocaine HCl (Xylocaine-Mpf 1%) Confirm Administered Dose 2 mls @ as directed .ROUTE .STK-MED ONE Stop: 02/01/17 12:45 Ketamine HCl (Ketalar) Confirm Administered Dose 500 mg .ROUTE .STK-MED ONE Stop: 02/01/17 12:45 Magnesium Hydroxide (Milk Of Magnesia) 30 ml PO BID PRN PRN Reason: Constipation Metformin HCl (Glucophage Xr) 500 mg PO DAILY MATTHEW Midazolam HCl (Versed 1 Mg/Ml) Confirm Administered Dose 2 mg .ROUTE .STK-MED ONE Stop: 02/01/17 12:45 Naloxone HCl (Narcan) 0.2 mg IVPUSH ASDIRECTED PRN PRN Reason: Oversedation Stop: 01/30/17 23:00 Neostigmine Methylsulfate (Neostigmine) Confirm Administered Dose 5 mg .ROUTE .STK-MED ONE Stop: 01/30/17 06:56 Ondansetron HCl (Zofran Odt) 4 mg PO Q6H PRN PRN Reason: Nausea able to take PO Ondansetron HCl (Zofran) Confirm Administered Dose 4 mg .ROUTE .STK-MED ONE Stop: 01/30/17 06:56 Ondansetron HCl (Zofran) 8 mg IVPUSH Q4H PRN PRN Reason: Nausea/Vomiting Ondansetron HCl (Zofran) Confirm Administered Dose 4 mg .ROUTE .STK-MED ONE Stop: 02/01/17 12:45 Pneumococcal Polyvalent Vaccine (Pneumovax 23) 0.5 ml IM .ONCE ONE Stop: 01/30/17 13:01 Last Admin: 01/31/17 08:10 Dose: 0.5 ml Pneumococcal Polyvalent Vaccine (Pneumovax 23) 0.5 ml IM .ONCE ONE Stop: 01/31/17 13:01 Last Admin: 01/31/17 12:43 Dose: Not Given Povidone Iodine (Betadine 10% Soln) Confirm Administered Dose 1 ml .ROUTE .STK- MED ONE Stop: 01/30/17 06:56 Last Admin: 01/30/17 08:03 Dose: 30 ml Povidone Iodine (Betadine 10% Soln) Confirm Administered Dose 1 ml .ROUTE .STK- MED ONE Stop: 02/01/17 06:06 Last Admin: 02/01/17 15:29 Dose: 1 ml Propofol (Diprivan 20 Ml) Confirm Administered Dose 200 mg .ROUTE .STK-MED ONE Stop: 01/30/17 06:56 Propofol (Diprivan 20 Ml) Confirm Administered Dose 200 mg .ROUTE .STK-MED ONE Stop: 02/01/17 12:45 Propofol (Diprivan 20 Ml) Confirm Administered Dose 200 mg .ROUTE .STK-MED ONE Stop: 02/01/17 13:57 Rocuronium [place] (Zemuron) Confirm Administered Dose 50 mg .ROUTE .STK-MED ONE Stop: 01/30/17 06:56 Senna (Senna) 8.6 mg PO BID PRN PRN Reason: Constipation Sodium Chloride (Saline Flush) 10 ml FLUSH ASDIRECTED PRN PRN Reason: Keep Vein Open Spironolactone (Aldactone) 50 mg PO BID MATTHEW Succinylcholine Chloride (Quelicin) Confirm Administered Dose 200 mg .ROUTE .STK -MED ONE Stop: 01/30/17 06:56 Thrombin (Thrombin-Jmi) Confirm Administered Dose 15,000 unit .ROUTE .STK-MED ONE Stop: 01/30/17 06:56 Vancomycin HCl (Vancomycin) Confirm Administered Dose 1 gm .ROUTE .STK-MED ONE Stop: 01/30/17 07:34 Last Admin: 01/30/17 08:02 Dose: 1 gm Vancomycin HCl (Vancomycin) Confirm Administered Dose 1 gm .ROUTE .STK-MED ONE Stop: 02/01/17 06:06 Last Admin: 02/01/17 15:28 Dose: 1 gm Zolpidem Tartrate (Ambien) 5 mg PO BEDTIME [facility] Last Admin: 01/29/17 21:39 Dose: 5 mg Zolpidem Tartrate (Ambien) 5 mg PO BEDTIME PRN PRN Reason: Sleep Last Admin: 02/01/17 22:18 Dose: 5 mg *Q Meaningful Use (DIS) - VTE *Q VTE Criteria *Q: - Stroke *Q Stroke Criteria *Q: - AMI *Q AMI Criteria *Q:
== END 2017-02-02 09:45 | disposition home or self-care (01) | DRG 858 ==
LOC: JP.MS 13:12 → EDSTATUS 01-30 07:30
PROVIDERS: ADMIT Orthopaedic Surgery; ATTEND Orthopaedic Surgery
PROC: 0JD70ZZ Extraction of Back Subcutaneous Tissue and Fascia, Open Approach (ICD-10-PCS; principal; 2017-01-30)
PROC: 0J9700Z Drainage of Back Subcutaneous Tissue and Fascia with Drainage Device, Open Approach (ICD-10-PCS; 2017-01-30)
PROC: 0JQ70ZZ Repair Back Subcutaneous Tissue and Fascia, Open Approach (ICD-10-PCS; 2017-02-01)
PROC: 0WP Anatomical Regions, General, Removal (ICD-10-PCS; 2017-02-01)
DX: T81.4XXA Infection following a procedure, initial encounter (principal); K21.9 Gastro-esophageal reflux disease without esophagitis; F17.200 Nicotine dependence, unspecified, uncomplicated; Z79.899 Other long term (current) drug therapy
CPT/HCPCS: 36415; 80053; 85025; 86850; 86900; 86901; 87070; 87075; 87205; 90732; 94762; 97116-GP; 97161-GP; 97530-GP; 97535-GP; 97605; A9270-GY; C1751; J0171; J0330; J0690; J0735; J1100; J1170; J1580; J1885; J2250; J2405; J2704; J2710; J2795; J3010; J3360; J3370; J7040; J7050